=== PATIENT | male | born 1965 | race Hispanic/Latino ===

== ENCOUNTER → 2023-05-04 | Outpatient (CLI) | payer OTHER ==
[2023-05-04] MEDS: REGADENOSON 0.4 MG/5 ML PF SYG IVP ONE (11:55)
== END | disposition home or self-care (01) ==
LOC: SHCH 08:22
PROVIDERS: ATTEND Internal Medicine Cardiovascular Disease
DX: E78.5 Hyperlipidemia, unspecified (principal); I11.0 Hypertensive heart disease with heart failure; I50.20 Unspecified systolic (congestive) heart failure; I63.9 Cerebral infarction, unspecified; I47.10 Supraventricular tachycardia, unspecified; I25.2 Old myocardial infarction; I22.0 Subsequent ST elevation (STEMI) myocardial infarction of anterior wall; I25.10 Atherosclerotic heart disease of native coronary artery without angina pectoris; R06.00 Dyspnea, unspecified; R23.2 Flushing
CPT/HCPCS: 78452; 93017; J2785; A9500 ×2; 96374

== ENCOUNTER 2023-09-21 05:38 | Day surgery (SDC) | payer OTHER ==
[2023-09-18 12:16] VITALS: BP 117/74; PULSE 69; RESP 18
[2023-09-18 12:24] LABS: BASOPHILS # (AUTO) 0.05 K/uL (0.00-0.20); BASOPHILS % (AUTO) 0.6 % (0.0-5.0); EOSINOPHILS % (AUTO) 2.5 % (0.0-8.0); HEMATOCRIT 46.4 % (42-54); IMMATURE GRANULOCYTE ABSOLUTE 0.04 K/uL (0-1); LYMPHOCYTES # (AUTO) 2.1 K/uL (1.0-4.8); MEAN CORPUSCULAR HEMOGLOBIN 31.7 pg (27.0-33.0); MEAN CORPUSCULAR HGB CONC 34.7 g/dL (32.0-36.0); MEAN CORPUSCULAR VOLUME 91.3 fL (79-99); MONOCYTES # (AUTO) 0.7 K/uL (0.1-1.0); MONOCYTES % (AUTO) 8.9 % (3.0-13.0); NEUTROPHILS % (AUTO) 61.5 % (40.0-77.0); PLATELET COUNT (AUTO) 182 K/uL (130-400); RED BLOOD CELL COUNT(AUTO) 5.08 MIL/uL (4.50-6.20); RED CELL DISTRIBUTION WIDTH 12.5 % (11.0-15.5); WHITE BLOOD COUNT (AUTO) 8.1 K/uL (4.8-10.8)
[2023-09-18 12:32] LABS: CREATININE 1.3 mg/dL (0.5-1.3); POTASSIUM 4.2 mmol/L (3.5-5.1)
[2023-09-18 13:44] LABS: INR 1.02 (0.85-1.15); PARTIAL THROMBOPLASTIN TIME 25.5 SEC (26.3-35.5); PROTHROMBIN TIME 10.8 SEC (9.6-11.6)
[~2023-09-21] VITALS: Ht 165.1 cm; Wt 85.4 kg
[~2023-09-21 05:38] MED LIST: AEC81 PO; CLOP75TA32 PO; CYAN500T46 PO; FOLI0.4T6 PO; ROSU40TA70 PO
[2023-09-21 05:57] VITALS: BP 112/77; PULSE 71; RESP 18
[2023-09-21] MEDS: 0.9%NACL 1000ML 1,000 ML IV ONE (06:25)
[2023-09-21] MEDS ORDERED: LIDOCAINE HCL 1% MDV 50ML VIAL ONE (07:12)
[2023-09-21] MEDS ORDERED: BUPIVACAINE/PF 0.25% 30ML VIAL IJ ONE (07:13)
[2023-09-21 08:32] VITALS: BP 117/74; PULSE 62; RESP 16
[2023-09-21 08:50] VITALS: BP 123/76; PULSE 66; RESP 16
== END 2023-09-21 08:50 | disposition home or self-care (01) ==
LOC: DAH 05:38
PROVIDERS: ATTEND Internal Medicine Cardiovascular Disease
DX: I63.9 Cerebral infarction, unspecified (principal); I47.29 Other ventricular tachycardia; I25.10 Atherosclerotic heart disease of native coronary artery without angina pectoris; E78.5 Hyperlipidemia, unspecified; I10 Essential (primary) hypertension; Z82.3 Family history of stroke; Z83.3 Family history of diabetes mellitus; Z82.49 Family history of ischemic heart disease and other diseases of the circulatory system; Z79.82 Long term (current) use of aspirin; Z79.899 Other long term (current) drug therapy; Z86.73 Personal history of transient ischemic attack (TIA), and cerebral infarction without residual deficits; Z95.5 Presence of coronary angioplasty implant and graft; Z90.49 Acquired absence of other specified parts of digestive tract; Z98.890 Other specified postprocedural states
CPT/HCPCS: 80048; 85025; 85610; 85730; 36415; 93005; 33285; 33286; A4649; C1764; J7030; J0665; J3490; A4215; A6251; A4222; A4221; A4663; A4216; A6258; A4606; A4223 ×3